=== PATIENT | female | born 1945 | race Caucasian/White ===

== ENCOUNTER 2017-02-22 11:15 | Inpatient (IN) | payer OTHER ==
[~2017-02-22] VITALS: Ht 152.4 cm; Wt 55.3 kg
[2017-02-22] MEDS ORDERED: COREG PO (15:42)
[2017-02-22] MEDS ORDERED: COZAAR50 MG PO (15:42)
[2017-02-22] MEDS ORDERED: ZANTAC300 MG PO (15:43)
[2017-02-22] MEDS ORDERED: OMEPRAZOLE40 MG PO (15:43)
[2017-02-22] MEDS ORDERED: [UNRECOGNIZED DRUG - OTHER] PO (15:44)
[2017-02-22] MEDS ORDERED: OSEL75CA PO (15:45)
[2017-02-22] MEDS ORDERED: AZITHROMYCIN250 MG PO (15:46)
[2017-03-01] MEDS ORDERED: DOCUSATE SODIU100 MG PO (11:12)
[2017-03-01] MEDS ORDERED: CLONAZEPAM1 MG PO (11:12)
[2017-03-01] MEDS ORDERED: AMOX1TAB12 PO (11:12)
[2017-03-01] MEDS ORDERED: GABAPENTIN800 MG PO (11:12)
[2017-03-01] MEDS ORDERED: PERCOCET 5-3251 EACH PO (11:12)
== END 2017-03-01 17:04 | DRG 454 ==
LOC: ADM 11:15 → SURG 02-28 06:15 → O/R 02-28 06:15 → CIR.AMB 02-28 07:00 → SURG 02-28 11:15 → CIR.AMB 02-28 11:15 → EDSTATUS 02-28 11:15 → SURG 02-28 15:13
PROVIDERS: Orthopaedic Surgery Orthopaedic Surgery of the Spine
PROC: 0SG30AJ Fusion of Lumbosacral Joint with Interbody Fusion Device, Posterior Approach, Anterior Column, Open Approach (ICD-10-PCS; 2017-02-28)
PROC: 0SG0071 Fusion of Lumbar Vertebral Joint with Autologous Tissue Substitute, Posterior Approach, Posterior Column, Open Approach (ICD-10-PCS; 2017-02-28)
PROC: 0ST40ZZ Resection of Lumbosacral Disc, Open Approach (ICD-10-PCS; 2017-02-28)
PROC: 07DS3ZZ Extraction of Vertebral Bone Marrow, Percutaneous Approach (ICD-10-PCS; 2017-02-28)
PROC: 00NY0ZZ Release Lumbar Spinal Cord, Open Approach (ICD-10-PCS; principal; 2017-02-28 07:00)
DX: M43.17 Spondylolisthesis, lumbosacral region (principal); M47.16 Other spondylosis with myelopathy, lumbar region; M51.37 Other intervertebral disc degeneration, lumbosacral region; I10 Essential (primary) hypertension; E03.8 Other specified hypothyroidism; M79.7 Fibromyalgia